=== PATIENT | male | born 1960 | race African-American/Black ===

== ENCOUNTER 2023-12-26 08:53 | Outpatient (CLI) | payer MEDICARE, OTHER ==
--- NOTE | 2023-12-26 11:22 | Ultrasound Report ---
PROCEDURE: Aorta Screening INDICATIONS: SCREENING FOR CARDIOVASCULAR DISEASE TECHNIQUE: Real time scanning was performed of the aorta and iliac arteries, with image documentatio n. COMPARISON: None. FINDINGS: Examination is limited due to overlying bowel gas. Aorta: There are echogenic plaques. Proximal aorta is not visualized. Mid-aorta measures 2.3 x 2.2 cm. Distal aortic diameter is 2.0 x 2.0 cm. Iliac arteries: There are echogenic plaques. Right common iliac artery measures 1.4 x 1.5 cm. Left common iliac artery is not visualized. IMPRESSION: 1. No abdominal aortic aneurysm. Examination is limited due to overlying bowel gas. Recommended intervals for follow-up imaging of ectatic aortas and abdominal aortic aneurysms, per ACR consensus guidelines: 2.5-2.9 cm: 5 years 3.0-3.4 cm: 3 years 3.5-3.9 cm: 2 years 4.0-4.4 cm: 1 year 4.5-4.9 cm: 6 months + endovascular referral 5.0-5.5 cm: 3-6 months + endovascular referral Reviewed by: Kma Clarke MD on 12/26/2023 11:20 AM PDT Approved by: Kam Clarke MD on 12/26/2023 11:20 AM PDT Station ID: [id number]
== END 2023-12-26 08:54 | disposition home or self-care (01) ==
LOC: DI 08:53
PROVIDERS: ATTEND Student in an Organized Health Care Education/Training Program
DX: Z13.6 Encounter for screening for cardiovascular disorders (principal)